=== PATIENT | male | born 1975 | race Caucasian/White ===

== ENCOUNTER 2021-07-11 22:30 | Emergency (ER) | payer MEDICARE, MEDICAID, SELFPAY ==
[2021-07-11 22:32] VITALS: BP 165/95; PULSE 102; RESP 18; TEMP 36.6; O2SAT 94; BMI 34.3
--- NOTE | 2021-07-11 22:36 | CTR_ITS ---
PROCEDURE INFORMATION: Exam: CT Head Without Contrast Exam date and time: 07/11/2021 10:36 PM Age: 45 years old Clinical indication: Condition or disease; Convulsions or seizures; Additional info: Seizure TECHNIQUE: Imaging protocol: Computed tomography of the head without contrast. Radiation optimization: All CT scans at this facility use at least one of these dose optimization techniques: automated exposure control; mA and/or kV adjustment per patient size (includes targeted exams where dose is matched to clinical indication); or iterative reconstruction. COMPARISON: CT head wo con* [id number] 06/09/2017 12:13 AM RADIATION DOSE METRICS: Total DLP (mGy-cm): 847.27 FINDINGS: Brain: Normal. No hemorrhage. Unremarkable white matter. No mass effect. Cerebral ventricles: No ventriculomegaly. Paranasal sinuses: Visualized sinuses are unremarkable. No fluid levels. Mastoid air cells: Visualized mastoid air cells are well aerated. Bones/joints: Unremarkable. No acute fracture. Soft tissues: Unremarkable. CT/CT head wo con* [id number] IMPRESSION: No acute intracranial abnormality.
--- NOTE | 2021-07-11 22:37 | ECG_ITS ---
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
--- NOTE | 2021-07-11 22:45 | PC.NURSE ---
CT called and stated that pt was having a seziure on the table. RN went over and gave ativan IM. Pt was postictal.
--- NOTE | 2021-07-11 22:46 | ED_ITS ---
HPI - Neuro Symptoms/Deficit General: Chief Complaint: Neuro Symptoms/Deficit Stated Complaint: SEIZURE Time Seen by Provider: 07/11/21 22:32 Source: patient and EMS Mode of arrival: EMS Limitations: no limitations History of Present Illness: HPI Narrative: 45-year-old male who states that he had a seizure tonight at 830 patient did have a postictal period 30 minutes an hour patient came in by ambulance is awake alert able answer all my questions appropriately patient did have another seizure upon arrival here in the CT scanner that stopped with IM Ativan. He has no known history of seizures denies any head injuries he denies any worsening improving factors denies any recent illness or fever. Associated symptoms: Deny chest pain, nausea or vomiting Review of Systems Const: Denies: fever(s), chills, body aches or change in appetite Eyes: Denies: blurry vision or eye discomfort ENMT: Denies: throat pain or dental pain Card: Denies: chest pain Resp: Denies: dyspnea GI: Denies: abdominal pain, nausea, vomiting or diarrhea : Denies: dysuria Musc: Denies: neck pain or back pain Skin/Breast: Denies: rash Neuro: Reports: seizure-like activity Psych: Denies: depression Félix/Lymph: Denies: easy bruising All/Imm: Denies: urticaria Physical Exam Const: COMMON NORMALS: no acute distress, patient oriented x3 and healthy appearing HENMT: COMMON NORMALS: normocephalic and atraumatic HEAD & SCALP: normocephalic and atraumatic Eye: COMMON NORMALS: Equal, round and reactive pupils present and EOMs intact bilaterally PUPIL: Yes Equal, round and reactive pupils present Neck/C-Spine: COMMON NORMALS: full ROM and supple Chest: COMMONS NORMALS: normal inspection of the chest and normal palpation of entire chest wall Resp: COMMON NORMALS: normal respiratory effort, No retractions, No use of accessory muscles and clear to auscultation bilaterally AUSCULTATION: clear to auscultation bilaterally Cardio: COMMON NORMALS: regular rate, regular rhythm and No murmurs present (Cardio) RATE: regular rate RHYTHM: regular rhythm GI: COMMON NORMALS: Normal to inspection, nondistended, normoactive bowel sounds present, Soft to palpation, non-tender and no masses PALPATION: Yes Soft to palpation Extremity: COMMON NORMALS: normal to inspection and full ROM Neuro: COMMON NORMALS: patient oriented x3, moves all extremities and no focal motor deficits Psych: COMMON NORMALS: mental status grossly normal, Normal thought process present and cooperative THOUGHT PROCESS: Normal thought process present Skin: COMMON NORMALS: no rashes or lesions noted and no wounds GENERAL SKIN EXAM: no rashes or lesions noted Course Vital Signs: Vital signs: Vital Signs Temperature 97.8 F 07/11/21 22:32 Pulse Rate 102 H 07/11/21 22:32 Respiratory Rate 18 07/11/21 22:32 Blood Pressure 165/95 07/11/21 22:32 Pulse Oximetry 94 07/11/21 22:32 MDM - Neuro Symptoms/Deficit MDM Narrative: Medical decision making narrative: Patient presents here with new onset seizure patient is well-appearing here now is awake and able ambulate and was wanting to go home I feel he is stable for discharge at this time we will start him on Keppra given follow-up with neurology he is return if worsening he understands agrees to plan. Lab Data: Labs: Lab Results 07/11/21 07/11/21 07/11/21 23:10 23:19 23:19 WBC 22.4 10^3/uL H 10 ^3/uL (4.0-10.0) RBC 5.62 10^6/uL H 10 ^6/uL (4.1-5.3) Hgb 17.0 g/dL H g/dL (11.7-16.6) Hct 49.3 % % (42.0-52.0) MCV 87.7 fl fl (80-94) MCH 30.2 pg pg (28.0-34.0) MCHC 34.5 g/dL g/dL (30.0-36.0) RDW 11.9 % L % (12.1-15.1) Plt Count 282 10^3/cmm 10^3 /cmm (130-400) MPV 10.4 fL fL (7.4-10.4) Neut % (Auto) 82.0 % % Lymph % (Auto) 9.9 % % [place] % (Auto) 7.2 % % Eos % (Auto) 0.1 % % Baso % (Auto) 0.3 % % Neut # (Auto) 18.39 10^3/uL H 1 0^3/uL (1.8-7.7) Lymph # (Auto) 2.2 10^3/uL 10^3/ uL (0.8-4.8) [place] # (Auto) 1.6 10^3/uL H 10^ 3/uL (0.2-0.9) Eos # (Auto) 0.0 10^3/uL 10^3/ uL (0.0-0.8) Baso # (Auto) 0.1 10^3/uL 10^3/ uL (0.0-0.1) Nucleated RBC % (a uto) 0 % % Nucleated RBCs # 0.0 /100WBC /100W BC Sodium 137 mmol/L mmol/L (136-145) Potassium 3.7 mmol/L mmol/L (3.5-5.1) Chloride 95 mmol/L L mmol/ L (98-107) Carbon Dioxide 10 mmol/L L mmol/ L (22-29) Anion Gap 35.7 H (5-19) BUN 12 mg/dL mg/dL (6-20) Creatinine 1.4 mg/dL H mg/dL (0.7-1.2) GFR Calculation 54.6 mL/min L mL/ min (90-130) Glucose 110 mg/dL mg/dL (65-115) Calculated Osmolal ity 284 mOsm/kg L mOs m/kg (285-295) Calcium 9.4 mg/dL mg/dL (8.5-10.5) Total Bilirubin 0.5 mg/dL mg/dL (0.15-1.2) AST 52 U/L H U/L (0-40) ALT 58 U/L H U/L (0-41) Alkaline Phosphata se 74 IU/L IU/L (40-130) Total Protein 8.0 g/dL g/dL (6.6-8.7) Albumin 4.7 g/dL g/dL (3.5-5.2) Globulin 3.3 g/dL g/dL (1.3-4.6) Urine Opiates Scre en Negative ng/mL ng /mL (Negative) Ur Barbiturates Sc reen Negative ng/mL ng /mL (Negative) Ur Phencyclidine S crn Negative ng/mL ng /mL (Negative) Ur Amphetamines Sc reen Positive ng/mL H ng/mL (Negative) U Benzodiazepines Scrn Negative ng/mL ng /mL (Negative) Urine Cocaine Scre en Negative ng/mL ng /mL (Negative) U Marijuana (THC) Screen Negative ng/mL ng /mL (Negative) Ethyl Alcohol < 10 mg/dL mg/dL (0-10) 07/12/21 07/12/21 01:20 01:20 WBC 14.2 10^3/uL H 10 ^3/uL (4.0-10.0) RBC 5.03 10^6/uL 10^6 /uL (4.1-5.3) Hgb 14.8 g/dL g/dL (11.7-16.6) Hct 43.7 % % (42.0-52.0) MCV 86.9 fl fl (80-94) MCH 29.4 pg pg (28.0-34.0) MCHC 33.9 g/dL g/dL (30.0-36.0) RDW 11.9 % L % (12.1-15.1) Plt Count 213 10^3/cmm 10^3 /cmm (130-400) MPV 10.2 fL fL (7.4-10.4) Neut % (Auto) 88.3 % % Lymph % (Auto) 5.0 % % [place] % (Auto) 6.1 % % Eos % (Auto) 0.0 % % Baso % (Auto) 0.1 % % Neut # (Auto) 12.54 10^3/uL H 1 0^3/uL (1.8-7.7) Lymph # (Auto) 0.7 10^3/uL L 10^ 3/uL (0.8-4.8) [place] # (Auto) 0.9 10^3/uL 10^3/ uL (0.2-0.9) Eos # (Auto) 0.0 10^3/uL 10^3/ uL (0.0-0.8) Baso # (Auto) 0.0 10^3/uL 10^3/ uL (0.0-0.1) Nucleated RBC % (a uto) 0 % % Nucleated RBCs # 0.0 /100WBC /100W BC Sodium 135 mmol/L L mmol /L (136-145) Potassium 3.8 mmol/L mmol/L (3.5-5.1) Chloride 101 mmol/L mmol/L (98-107) Carbon Dioxide 17 mmol/L L mmol/ L (22-29) Anion Gap 20.8 H (5-19) BUN 12 mg/dL mg/dL (6-20) Creatinine 1.3 mg/dL H mg/dL (0.7-1.2) GFR Calculation 59.4 mL/min L mL/ min (90-130) Glucose 84 mg/dL mg/dL (65-115) Calculated Osmolal ity 279 mOsm/kg L mOs m/kg (285-295) Calcium 8.4 mg/dL L mg/dL (8.5-10.5) Total Bilirubin AST ALT Alkaline Phosphata se Total Protein Albumin Globulin Urine Opiates Scre en Ur Barbiturates Sc reen Ur Phencyclidine S crn Ur Amphetamines Sc reen U Benzodiazepines Scrn Urine Cocaine Scre en U Marijuana (THC) Screen Ethyl Alcohol Imaging Data^: CT Head: Attestation: I personally reviewed and interpreted this imaging study as follows: Radiologist's impression: [address] [place] [address] CT Scan Report Signed Patient: Rj Workman Unit #: [id number] : 1975 Age/Sex: 45 / M ADM Date: 07/11/21 Loc: ER Room/Bed: Attending Dr: Ordering Provider/Ordering MD: Abhi Ross MD Date of Service: 07/11/21 Procedure(s): CT head wo con* [id number] Accession Number(s): [id number] Report Number: [id number] PROCEDURE INFORMATION: Exam: CT Head Without Contrast Exam date and time: 07/11/2021 10:36 PM Age: 45 years old Clinical indication: Condition or disease; Convulsions or seizures; Additional info: Seizure TECHNIQUE: Imaging protocol: Computed tomography of the head without contrast. Radiation optimization: All CT scans at this facility use at least one of these dose optimization techniques: automated exposure control; mA and/or kV adjustment per patient size (includes targeted exams where dose is matched to clinical indication); or iterative reconstruction. COMPARISON: CT head wo con* [id number] 06/09/2017 12:13 AM RADIATION DOSE METRICS: Total DLP (mGy-cm): 847.27 FINDINGS: Brain: Normal. No hemorrhage. Unremarkable white matter. No mass effect. Cerebral ventricles: No ventriculomegaly. Paranasal sinuses: Visualized sinuses are unremarkable. No fluid levels. Mastoid air cells: Visualized mastoid air cells are well aerated. Bones/joints: Unremarkable. No acute fracture. Soft tissues: Unremarkable. CT/CT head wo con* [id number] IMPRESSION: No acute intracranial abnormality. Dictated By: Joo Bangura MD Signed By: Joo Bangura MD Signed Date/Time: 07/11/21 2350 DD/ EKG Data^: EKG 1: Attestation: I personally reviewed and interpreted this EKG as follows: EKG interpretation date: 07/12/21 EKG interpretation time: 00:56 Interpretation: nsr hr [address] or t wave abnormalities qrs 95 qtc 428 Discharge Plan Discharge Patient Disposition: Home Clinical Impression: Seizure Condition: Stable Prescriptions: New Keppra 500 mg tablet 500 mg PO BID Qty: 60 RF: 1 Discharge Orders: Discharge ED (Routine); Ordered 07/12/21 Ordered By: Abhi Ross Discharge Diet: Advance as tolerated Discharge Activity: Resume usual activity Patient Instructions: New-Onset Seizure in Adults (ED) Coding Level of Care Code ED Software Maintenance Engineer for Chg Fwd Exam Comprehensive
[2021-07-11 23:24] LABS: Basophils # 0.1 10^3/uL (0.0-0.1); Basophils % 0.3 %; Eosinophils % 0.1 %; Hematocrit 49.3 % (42.0-52.0); Lymphocytes # 2.2 10^3/uL (0.8-4.8); Lymphocytes % 9.9 %; Mean Corpuscular HGB Conc 34.5 g/dL (30.0-36.0); Mean Corpuscular Hemoglobin 30.2 pg (28.0-34.0); Mean Corpuscular Volume 87.7 fl (80-94); Mean Platelet Volume 10.4 fL (7.4-10.4); Monocytes # 1.6 10^3/uL (0.2-0.9); Monocytes % 7.2 %; Neutrophils # 18.39 10^3/uL (1.8-7.7); Nucleated Red Blood Cells % 0 %; Platelet Count 282 10^3/cmm (130-400); Red Blood Count 5.62 10^6/uL (4.1-5.3); Red Cell Distribution Width 11.9 % (12.1-15.1); White Blood Count 22.4 10^3/uL (4.0-10.0)
[2021-07-11 23:29] LABS: Amphetamines Screen Urine Positive (Negative); Barbiturates Screen Urine Negative (Negative); Benzodiazepines Screen Urine Negative (Negative); Cocaine Screen Urine Negative (Negative); Opiate Screen Urine Negative (Negative); PCP Screen Urine Negative (Negative); THC Screen Urine Negative (Negative)
[2021-07-11] MEDS: LORazepam 2 mg/mL INJ 1 mL (23:36)
[2021-07-11] MEDS: LORazepam 2 mg/mL INJ 1 mL IVP (23:36)
[2021-07-11] MEDS: sodium chloride 0.9% 1,000 ML 999 ML IV (23:36)
[2021-07-11 23:44] LABS: Alanine Aminotransferase 58 U/L (0-41); Albumin Level 4.7 g/dL (3.5-5.2); Alkaline Phosphatase 74 IU/L (40-130); Anion Gap 35.7 (5-19); Aspartate Amino Transferase 52 U/L (0-40); Blood Urea Nitrogen 12 mg/dL (6-20); Calcium 9.4 mg/dL (8.5-10.5); Carbon Dioxide 10 mmol/L (22-29); Chloride 95 mmol/L (98-107); Globulin 3.3 g/dL (1.3-4.6); Glomerular Filtration Rate 54.6 mL/min (90-130); Glucose 110 mg/dL (65-115); Osmolality Calculated 284 mOsm/kg (285-295); Potassium 3.7 mmol/L (3.5-5.1); Sodium 137 mmol/L (136-145); Total Bilirubin 0.5 mg/dL (0.15-1.2)
[2021-07-11 23:48] LABS: Alcohol Level < 10 mg/dL (0-10)
[2021-07-12] MEDS: sodium chloride 0.9% 1,000 ML 999 ML IV ×2 (00:02→01:08)
[2021-07-12 01:34] LABS: Basophils % 0.1 %; Hematocrit 43.7 % (42.0-52.0); Hemoglobin 14.8 g/dL (11.7-16.6); Lymphocytes # 0.7 10^3/uL (0.8-4.8); Mean Corpuscular HGB Conc 33.9 g/dL (30.0-36.0); Mean Corpuscular Hemoglobin 29.4 pg (28.0-34.0); Mean Corpuscular Volume 86.9 fl (80-94); Mean Platelet Volume 10.2 fL (7.4-10.4); Monocytes # 0.9 10^3/uL (0.2-0.9); Monocytes % 6.1 %; Neutrophils # 12.54 10^3/uL (1.8-7.7); Neutrophils % 88.3 %; Nucleated Red Blood Cells % 0 %; Platelet Count 213 10^3/cmm (130-400); Red Blood Count 5.03 10^6/uL (4.1-5.3); Red Cell Distribution Width 11.9 % (12.1-15.1); White Blood Count 14.2 10^3/uL (4.0-10.0)
[2021-07-12 01:48] LABS: Anion Gap 20.8 (5-19); Blood Urea Nitrogen 12 mg/dL (6-20); Calcium 8.4 mg/dL (8.5-10.5); Carbon Dioxide 17 mmol/L (22-29); Chloride 101 mmol/L (98-107); Glomerular Filtration Rate 59.4 mL/min (90-130); Glucose 84 mg/dL (65-115); Osmolality Calculated 279 mOsm/kg (285-295); Potassium 3.8 mmol/L (3.5-5.1); Sodium 135 mmol/L (136-145)
--- NOTE | 2021-07-12 09:16 | DCPLANNER ---
commercial finance manager had message to schedule a follow up appointment for patient with Dr. Strong. commercial finance manager emailed patients information to the neurology clinic. Patients information will be printed and reviewed. Clinic will call patient with appointment information.
--- NOTE | 2021-07-14 07:30 | DCPLANNER ---
Patient has a follow up appointment scheduled for Sunday, August 15, 2020 at 10:[address] Strong. Clinic will call patient with appointment information.
--- NOTE | 2021-08-23 08:39 | DCPLANNER ---
Patient had a follow up appointment scheduled for 08.15.[address] Strong - patient did not attend appointment.
== END 2021-07-12 02:50 | disposition home or self-care (01) ==
PROVIDERS: Emergency Provider Emergency Medicine
DX: R56.9 Unspecified convulsions (principal)
CPT/HCPCS: 70450; 80048; 80053; 80306; 80307; 85025; 93005; 96361; 96374; 96375; 99284; J1953; J2060; J7030

== ENCOUNTER → 2022-04-27 09:29 | Outpatient (BNVA) | payer MEDICARE, MEDICAID, SELFPAY | PROVIDERS: Visit Provider Nurse Practitioner Family | DX: M47.816 Spondylosis without myelopathy or radiculopathy, lumbar region (principal); M41.87 Other forms of scoliosis, lumbosacral region; M54.59 Other low back pain | CPT/HCPCS: 72100 ==

== ENCOUNTER 2022-07-04 06:49 | Outpatient (CLI) | payer MEDICARE, MEDICAID, SELFPAY ==
--- NOTE | 2022-07-04 07:19 | MR_ITS ---
WS: [id number] MRI LUMBAR SPINE WITH AND WITHOUT CONTRAST. HISTORY: LEG PAIN, BILATERAL, remote history lumbar spine surgery. COMPARISON: Lumbar spine radiograph 04/27/2022 TECHNIQUE: Sagittal and axial multisequence imaging is submitted. Pre and postcontrast imaging. Multi Osvaldo 20 mL IV. Normal lumbar alignment with no compression fractures or marrow edema. Mild disc space desiccation at L4-5 and L5-S1 without narrowing. Conus terminates normally at L1-2 disc level. L1-L2: Normal. L2-L3: Normal. L3-L4: Very mild facet joint arthritis. No stenosis. L4-L5: Mild annular disc bulging. Small bilateral shallow foraminal disc protrusion with annular fiss ures. Mild RIGHT and moderate LEFT foraminal stenosis. There is very mild disc contact upon the trave rsing L5 nerve roots. Mild facet joint arthritis. L5-S1: Mild annular disc bulging and mild facet arthritis. Osteophyte and disc extend into the LEFT f oramen. There is complete effacement of fat with severe LEFT foraminal stenosis. Paravertebral soft tissues are negative. No areas of abnormal enhancement. No discitis or osteomyelitis. MR/MR lumbar spine wo/w con [id number] IMPRESSION: 1. Severe LEFT foraminal stenosis at L5-S1 due to combination of osteophyte an d disc disease. 2. Moderate LEFT and mild RIGHT foraminal stenosis at L4-5 due to disc and ost eophytosis. Mild encroachment upon the L5 traversing nerve roots by disc bulgin g. 3. Small bilateral shallow foraminal disc protrusions with annular fissures at L4-5. 4. No discitis or osteomyelitis.
[2022-07-04] MEDS: gadobenate dimeglumine 20 mL vial IV (08:10)
== END 2022-07-04 06:50 | disposition home or self-care (01) ==
PROVIDERS: PCP Nurse Practitioner Family; Visit Provider Nurse Practitioner Family
DX: R29.898 Other symptoms and signs involving the musculoskeletal system (principal); M79.604 Pain in right leg; M79.605 Pain in left leg; G60.9 Hereditary and idiopathic neuropathy, unspecified; M48.07 Spinal stenosis, lumbosacral region; M48.061 Spinal stenosis, lumbar region without neurogenic claudication; M51.26 Other intervertebral disc displacement, lumbar region
CPT/HCPCS: 72158; A9577

== ENCOUNTER → 2023-01-04 08:45 | Outpatient (BNVA) | payer MEDICARE, MEDICAID, SELFPAY | PROVIDERS: PCP Nurse Practitioner Family; Referring Provider Dermatology; Visit Provider Orthopaedic Surgery | DX: Z01.818 Encounter for other preprocedural examination (principal); M54.9 Dorsalgia, unspecified; M48.062 Spinal stenosis, lumbar region with neurogenic claudication | CPT/HCPCS: 72110; 80053; 85025; 99204 ==

== ENCOUNTER 2023-01-19 05:41 | Day surgery (SDC) | payer MEDICARE, MEDICAID, SELFPAY ==
[2023-01-12 08:53] VITALS: BMI 31.8
--- NOTE | 2023-01-12 09:20 | ANES.PREANE2 ---
Pre-Anesthetic Assessment Height/Weight: Height 1.75 m Weight 97.976 kg Operation Date: 01/19/23 09:10 Proposed Procedures p Lumbar Spine Decompression:14577,M48.062(Bilateral) - Hammad Rahman, Familial anesthetic complications: None Social No alcohol and No tobacco Exam alert, oriented x 3, clear to auscultation bilaterally and regular rate & rhythm Airway Mallampati: Class II Dentition: full CV/HEM Hypertension GI Gastroesophageal Reflux Disease Neuropsych Seizure (only ever experienced one seizure, but still takes keppra under supervision of physician) Anesthetic Plan ASA status: 2 Anesthesia: General Risk of > 500 ml blood loss (7ml/kg in children): No Medications/Allergies Home Medications Medication Instructions Recorded Confirmed Last Taken Type levetiracetam 500 mg tablet 500 mg PO BID #60 tabs 07/12/21 01/12/23 Unknown Rx (Keppra) amlodipine 10 mg tablet 10 mg PO DAILY 01/12/23 01/12/23 Unknown History hydrocodone 10 mg-acetaminophen 1 tab PO QID 01/12/23 01/12/23 Unknown History 325 mg tablet lisinopril 40 mg tablet 40 mg PO DAILY 01/12/23 01/12/23 Unknown History omeprazole 20 mg capsule,delayed 20 mg PO DAILY 01/12/23 01/12/23 Unknown History release Allergies Allergy/AdvReac Type Severity Reaction Status Date / Time fentanyl Allergy ALGY-Rash Verified 01/12/23 08:46 Data Anesthesia Cardiac Studies: No Data to Display
[2023-01-19] VITALS (13 sets, daily range): BP systolic 147–184; BP diastolic 11–115; PULSE 50–79; RESP 14–19; TEMP 36.1–36.6; O2SAT 95–98
--- NOTE | 2023-01-19 | XR_ITS ---
WS: [id number] XR lumbar spine 1V [id number] REASON FOR EXAM: L4-5 decompression FINDINGS: Surgical instrument overlies the right L4-L5 interspace. XR/XR lumbar spine 1V [id number] IMPRESSION: Lumbar localization in surgery as above.
[2023-01-19] MEDS: sodium chloride 0.9% 1,000 ML 30 ML IV (06:20)
--- NOTE | 2023-01-19 06:28 | W.PM.OPSUD ---
Surgery/Procedure H&P Update DATE OF PROCEDURE: January 19, 2023 DATE H&P PERFORMED: 01/04/23 H&P UPDATE INFORMATION: I have reviewed H&P completed within last 30 days, I have examined patient prior to procedure and No changes to prior documentation PREOP DIAGNOSIS: Lumbar stenosis with neurogenic claudication PLANNED PROCEDURE: Operation Date: 01/19/23 07:00 Proposed Procedures p B Lumbar Spine Decompression L4-5 to stand on right:40108,M48.062(Bilateral) - Hammad Rahman DO
--- NOTE | 2023-01-19 06:31 | ANES.PREANE2 ---
Pre-Anesthetic Assessment Height/Weight: Height 1.75 m Weight 97.976 kg O2 Del Method Room Air 01/19/23 06:11 Preop Diagnosis: Lumbar stenosis with neurogenic claudication Operation Date: 01/19/23 07:00 Proposed Procedures p B Lumbar Spine Decompression L4-5 to stand on right:25186,M48.062(Bilateral) - Hammad Rahman, Last intake: Intake Last Liquid Date 01/18/23 Last Liquid Time 23:30 Last Solid Date 01/18/23 Last Solid Time 23:55 Social Non Smoker Airway Submandibular: within normal limits Cervical ROM: within normal limits Mallampati: Class II CV/HEM Hypertension GI Gastroesophageal Reflux Disease Anesthetic Plan ASA status: 2 Anesthesia: General Medications/Allergies Home Medications Medication Instructions Recorded Confirmed Last Taken Type levetiracetam 500 mg tablet 500 mg PO BID #60 tabs 07/12/21 01/19/23 01/18/23 08:00 Rx (Adrienne) amlodipine 10 mg tablet 10 mg PO DAILY 01/12/23 01/19/23 01/18/23 08:00 History hydrocodone 10 mg-acetaminophen 0.5 tab PO QID 01/12/23 01/19/23 01/19/23 History 325 mg tablet 0.5 lisinopril 40 mg tablet 40 mg PO DAILY 01/12/23 01/19/23 01/18/23 08:00 History omeprazole 20 mg capsule,delayed 20 mg PO DAILY 01/12/23 01/19/23 01/18/23 History release 0800 Allergies Allergy/AdvReac Type Severity Reaction Status Date / Time fentanyl Allergy ALGY-Rash Verified 01/12/23 10:14 Current Medications Generic Name Dose Route Start Last Admin Trade Name Freq PRN Reason Stop Dose Admin Sodium Chloride 1,000 mls @ 30 mls/hr 01/19/23 06:00 01/19/23 06:20 Sodium Chloride 0.9% IV 01/20/23 05:59 30 mls/hr .Q24H SUSIE Administration PFSH Anesthesia Medical History Essential hypertension Seizures last on in 2021, unknown cause. does not follow with neurology. Surgical History History of radiofrequency ablation (RFA) of nerve of cervical spine S/P insertion of spinal cord stimulator removed Sep 2022 Family History Denies family history of CAD (coronary artery disease) Anesthesia complication Bleeding disorder Social History Smoking and tobacco status: never smoked Alcohol intake: never Data Anesthesia Cardiac Studies: No Data to Display
[2023-01-19] MEDS: midazolam 1 mg/mL INJ 2 mL 2 MG IVP (06:45)
[2023-01-19] MEDS: ceFAZolin 2,000 MG in sodium chloride 0.9% (plus) 50 ML 100 MG IV (06:59)
[2023-01-19] MEDS: lidocaine-epi 2% 20 mL INJ INJECTION (07:31)
--- NOTE | 2023-01-19 07:58 | PM.OP ---
Operative Report Date of procedure: January 19, 2023 Pre-op diagnosis: Preop Diagnosis Lumbar stenosis with neurogenic claudication Post-op diagnosis: same Procedure done: 1. L4/5 laminectomy with partial facetectomy Surgeon: Hammad Rahman Presentation Team Member: none Estimated blood loss (mL): 10 Procedure: 1. L4/5 laminectomy with partial facetectomy Patient is brought to the operative suite. After undergoing anesthesia they are placed in the prone position. All areas of impingement are well padded. Patient is then prepped and draped in the normal sterile fashion. A skin incision is made over the L4/5 level. This is confirmed under c-arm guidance. A series of dilators are passed and the tubular retractor is docked on the L4 lamina. A bovie is used to clear the soft tissue off the lamina and the L 4/5 facet joint. A high speed kirk is then used to perform the laminectomy and take down the medial aspect of the L 4/5 facet joint. A kerrison rongeure was then used to take down the remaining lamina and smooth the edge of the laminectomy up to the point where the ligamentum flavum attaches. Attention was then brought to the medial aspect of the facet joint. The remaining medial aspect of the superior and inferior aspect of the facet joint were taken down with the kerrison from the pedicle of L4 to L 5. The facet joint had significant hypertrophy. Attention was then brought to the Ligamentum Flavum. The ligament was taken down from the lamina of L4 to L5 and out medially to the remaining facet joint. The ligament was thick. The dura was then exposed. The dura was in good repair. The L4 nerve was then traced with a curette out the L4/5 foramen and found to be adequately decompressed. The L5 nerve was traced with a curette around the L5 pedicle. The lateral recess was opened with a kerrison helping to further decompress the L5 nerve. Wound is then irrigated copiously with saline and surgiflo is used to stop any bleeding. The tubular retractor is removed and the wound is closed with vicryl and monocryl suture. Glue is then used to protect the wound. A sterile dressing is then placed. Patient was then placed in the supine position and transferred to the PACU in stable condition.
[2023-01-19] MEDS: HYDROmorphone 1 mg/mL INJ 1 mL 0.5 MG IVP ×2 (08:21→08:45)
[2023-01-19] MEDS: labetalol 5 mg/mL SDV 20mL IVP (08:32)
--- NOTE | 2023-01-19 08:35 | PM.PACU ---
PACU note Narrative: Awake and alert; hypertensive. Pain 5/10. Well hydrated. No N/V.
[2023-01-19] MEDS: HYDROcodone-acetaminophen 10-325 mg Tablet 1 TAB PO (09:38)
== END 2023-01-19 09:48 | disposition home or self-care (01) ==
PROVIDERS: PCP Nurse Practitioner Family; Visit Provider Orthopaedic Surgery
PROC: (CPT 63005; principal; 2023-01-19 07:00)
DX: M48.062 Spinal stenosis, lumbar region with neurogenic claudication (principal); I10 Essential (primary) hypertension; K21.9 Gastro-esophageal reflux disease without esophagitis; R56.9 Unspecified convulsions
CPT/HCPCS: 63047; 72020; 76000; J0690; J1100; J1170; J2250; J2370; J2405; J2704; J2710; J3010; J3490; J7030

== ENCOUNTER → 2023-02-01 09:48 | Outpatient (BNVA) | payer MEDICARE, MEDICAID, SELFPAY | PROVIDERS: PCP Nurse Practitioner Family; Visit Provider Physician Assistant | DX: Z98.890 Other specified postprocedural states (principal) | CPT/HCPCS: 99024 ==

== ENCOUNTER → 2023-02-28 10:31 | Outpatient (BNVA) | payer MEDICARE, MEDICAID, SELFPAY | PROVIDERS: PCP Nurse Practitioner Family; Visit Provider Physician Assistant | DX: Z98.890 Other specified postprocedural states (principal) | CPT/HCPCS: 99024 ==

== ENCOUNTER → 2023-04-12 15:37 | Outpatient (BNVA) | payer MEDICARE, MEDICAID, SELFPAY | PROVIDERS: PCP Nurse Practitioner Family; Visit Provider Orthopaedic Surgery | DX: Z47.89 Encounter for other orthopedic aftercare (principal) | CPT/HCPCS: 99024 ==

== ENCOUNTER 2023-05-09 15:48 | Outpatient (CLI) | payer MEDICARE, MEDICAID, SELFPAY ==
--- NOTE | 2023-05-09 16:00 | MR_ITS ---
WS: [id number] MRI LUMBAR SPINE NONCONTRAST HISTORY: back pain/numbness COMPARISON: 07/04/2022 TECHNIQUE: Sagittal and axial multisequence imaging is submitted. Disc survey there is mild convex deformity of T3, T4 and T5. Normal lumbar alignment with no compression fractures or marrow edema. Disc spaces and vertebral body heights are well-preserved. Conus terminates normally at L1-2 disc level. L1-L2: Normal. L2-L3: Normal. L3-L4: Mild annular disc bulging with ligamentum flavum and facet arthritis. No high-grade stenosis. L4-L5: Moderate annular disc bulging with contact on the ventral thecal sac and the subarticular rece sses. Bilateral shallow foraminal disc protrusions with annular fissures. Small RIGHT hemilaminectomy defect. Reidentified is moderate bilateral foraminal stenosis with minimal change. Slight progressio n of the RIGHT foraminal stenosis. Disc and osteophyte disease is contacting the L4 and L5 nerve root s. L5-S1: Mild annular disc bulging with facet arthritis. Effacement of fat in the LEFT foramen. Severe LEFT foraminal stenosis and mild RIGHT foraminal stenosis. Paravertebral soft tissues are negative. IMPRESSION: 1. New hemilaminectomy on the RIGHT at L4-5. 2. Continued severe LEFT foraminal stenosis and mild RIGHT foraminal stenosis at L5-S1. 3. Moderate bilateral foraminal stenosis at L4-5 due to osteophyte and disc disease. There is disc an d osteophyte contacting the L4 and L5 nerve roots.
== END 2023-05-09 15:49 | disposition home or self-care (01) ==
PROVIDERS: PCP Nurse Practitioner Family; Visit Provider Orthopaedic Surgery
DX: M48.062 Spinal stenosis, lumbar region with neurogenic claudication (principal); M25.78 Osteophyte, vertebrae; M51.36 Other intervertebral disc degeneration, lumbar region; Z98.890 Other specified postprocedural states
CPT/HCPCS: 72148

== ENCOUNTER → 2023-05-22 10:05 | Outpatient (BNVA) | payer MEDICARE, MEDICAID, SELFPAY | PROVIDERS: PCP Nurse Practitioner Family; Visit Provider Physician Assistant | DX: M48.062 Spinal stenosis, lumbar region with neurogenic claudication (principal) | CPT/HCPCS: 99213 ==